=== PATIENT | male | born 1970 | race American Indian/Alaskan Native ===

== ENCOUNTER 2019-01-12 01:07 | Emergency (ER) | payer MEDICAID ==
[2019-01-12 01:54] LABS: Basophils % (Auto) 0.6 % (0.0-1.8); Eosinophils # (Auto) 0.2 K/mm3 (0.0-0.4); Eosinophils % (Auto) 3.2 % (0.0-4.3); Hematocrit 36.5 % (35.5-45.6); Hemoglobin 12.5 gm/dl (11.8-15.2); Lymphocytes % (Auto) 32.3 % (13.4-35.0); Mean Corpuscular HGB Conc 34 % (32-34); Mean Corpuscular Volume 87 fl (84-94); Monocytes # (Auto) 0.5 K/mm3 (0.0-0.8); Monocytes % (Auto) 8.6 % (0.0-7.3); Platelet Count 223 K/mm3 (140-440); Red Blood Count 4.21 M/mm3 (3.65-5.03); Red Cell Distribution Width 14.8 % (13.2-15.2)
[2019-01-12 02:13] LABS: BUN/Creatinine Ratio 17; Blood Urea Nitrogen 15 mg/dL (9-20); Calcium 9.3 mg/dL (8.4-10.2); Hemolysis Index 13
[2019-01-12] MEDS ORDERED: SUBLIMAZE IV ONE (03:32)
[2019-01-12] MEDS ORDERED: ZOFRAN IV ONE (03:32)
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
--- NOTE | 2019-01-12 03:55 | XRay Report ---
PROCEDURE: XR FOOT 2V RT TECHNIQUE: Right foot radiographs, AP and lateral views. HISTORY: Right foot pain and swelling COMPARISONS: None . FINDINGS: Fracture (s) and/or Dislocation(s): There is a comminuted fracture of the calcaneus . Alignment: Normal . Joint space(s): Normal . Soft tissues: Mild soft tissue swelling over the calcaneus . Bone mineralization: Normal . Foreign bodies: None . Calcaneal spurring: None . IMPRESSION: There is a comminuted fracture of the calcaneus. . This document is electronically signed by Renetta Villavicencio DO., January 12 2019 03:53:49 AM ET
--- NOTE | 2019-01-12 04:26 | XRay Report ---
PROCEDURE: XR ANKLE 2V LT TECHNIQUE: AP and lateral views left ankle HISTORY: pain after jumping from balcony COMPARISONS: None FINDINGS: Intact ankle mortise. The distal left tibia and fibula are intact. Lateral view including the left fo ot shows no displaced fracture or focal soft tissue abnormality. IMPRESSION: Intact left ankle. This document is electronically signed by Pankaj Grant MD., January 12 2019 04:25:03 AM ET
--- NOTE | 2019-01-12 04:27 | XRay Report ---
PROCEDURE: XR FOOT 2V LT TECHNIQUE: AP and lateral views of the left foot were submitted. HISTORY: pain after jumping from balcony COMPARISONS: None FINDINGS: There is no evidence of an acute displaced fracture or dislocation. The soft tissues are within jaky l limits. IMPRESSION: Within normal limits.. This document is electronically signed by Gerry Quintana MD., January 12 2019 04:25:19 AM ET
--- NOTE | 2019-01-12 04:30 | XRay Report ---
PROCEDURE: XR TIBIA FIBULA 2V RT TECHNIQUE: AP and lateral views of the right tibia-fibula were submitted. HISTORY: pain after jumping from balcony COMPARISONS: None FINDINGS: There is a vertically oriented mildly displaced fracture through the calcaneal tuberosity. There are no additional fractures. Ankle mortise is well-maintained. There is soft tissue swelling around the a nkle. The knee joint does not show any acute changes. There is nonspecific soft tissue swelling aroun d the midfoot. IMPRESSION: Acute vertically oriented mildly fracture through the calcaneal tuberosity. No additional fractures involving the tibia and fibula. Mild soft tissue swelling around the ankle and along the dorsal aspect of the midfoot.. This document is electronically signed by Gerry Quintana MD., January 12 2019 04:28:36 AM ET
--- NOTE | 2019-01-12 06:14 | Cat Scan Report ---
PROCEDURE: CT CERVICAL SPINE WO CON TECHNIQUE: Computerized tomography of the cervical spine was performed from the skull base to T1 wit hout contrast material. CT DOSE LENGTH PRODUCT: mGycm HISTORY: pain after jumping from balcony COMPARISONS: None . FINDINGS: C1-2: No significant abnormality . C2-3: No significant abnormality . C3-4: No significant abnormality . C4-5: No significant abnormality . C5-6: There is moderate narrowing of the disc space with endplate spurring. There is very mild left- sided neural foraminal encroachment by spurring. . C6-7: No significant abnormality . C7-T1: No significant abnormality . Fractures: None . Other: There are emphysematous changes in both lung apices. . IMPRESSION: Degenerative arthritic changes primarily at the C5-C6 level. No acute injury. Emphysematous changes in both lung apices. This document is electronically signed by Gerry Quintana MD., January 12 2019 06:12:42 AM ET
--- NOTE | 2019-01-12 06:36 | Cat Scan Report ---
PROCEDURE: CT ABDOMEN PELVIS WO CON TECHNIQUE: Routine axial imaging was obtained of the abdomen and pelvis without oral or IV contrast. HISTORY: RLQ pain after jumping from [employer] COMPARISONS: 06/03/2017 FINDINGS: The lung bases reveal very mild atelectatic changes. There are no infiltrates pneumothorax or effusio ns. The liver, spleen, gallbladder, biliary tree and pancreas appear normal. The adrenal glands appear no rmal. The kidneys reveal nonobstructing stones in the lower pole of the right kidney measuring 1.5 cm in diameter. There are punctate calcifications in left kidney. There is no evidence of hydronephrosi s. The bowel loops are normal in caliber and course. There is no evidence of free fluid or adenopathy . In the pelvis the prostate gland and bladder appear normal. There is a small left inguinal hernia c ontaining omental fat. There is no evidence of acute fracture. There is disc degeneration in the L4-5 and L5-S1 levels. The surrounding soft tissues otherwise are unremarkable. IMPRESSION: No acute process in the abdomen and pelvis. Nonobstructing stones lower pole of the right kidney. Nonobstructing punctate calcifications in the l eft kidney. Small left inguinal hernia containing omental fat. Disc degeneration in the lower lumbar spine.. This document is electronically signed by Gerry Quintana MD., January 12 2019 06:34:31 AM ET
--- NOTE | 2019-01-12 06:43 | Cat Scan Report ---
PROCEDURE: CT LUMBAR SPINE WO CON TECHNIQUE: Routine axial imaging was obtained of the lumbar spine without IV contrast with sagittal and coronal reconstructions. HISTORY: pain after jumping from balcony COMPARISONS: None FINDINGS: At the L5-S1 level there is severe narrowing of the disc with endplate changes. There is central bulg ing of the disc annulus. There is bilateral mild to moderate facet arthropathy changes. At the L4-5 level there is mild to moderate narrowing of the disc. There is central bulging of the di sc annulus with eccentricity toward the left neural foramen with left-sided neural foraminal impingem ent. The facet joints are well-maintained. At the L3-4 level the disc height is preserved. There is minimal bulging of the disc annulus. The can al size is normal. The facet joints are well-maintained. The L1-L2 and L2-3 disks are normal. There is no evidence of fracture. The surrounding soft tissue calcification of the abdominal aorta. T he SI joints appear intact. IMPRESSION: Disc degeneration at the L4-5 and L5-S1 levels as described with bulging annuli. Left-sided neural foraminal impingement the L4-5 level with eccentric bulging of the disc annulus. A disc herniation cannot entirely be excluded. MRI is recommended for further evaluation.. No evidence of acute fracture or soft tissue injury. This document is electronically signed by Gerry Quintana MD., January 12 2019 06:42:13 AM ET
--- NOTE | 2019-01-12 06:48 | Cat Scan Report ---
PROCEDURE: CT HEAD/BRAIN WO CON TECHNIQUE: Computerized tomography of the head was performed without contrast material. CT DOSE LENGTH PRODUCT: 805.4 mGycm HISTORY: pain after jumping from balcony COMPARISONS: None . FINDINGS: Skull and scalp: There is localized thinning within the right parietal bone which is of uncertain et iology. Whether this is congenital or acquired is uncertain. . Paranasal sinuses: Normal . Ventricles and subarachnoid spaces: Normal . Cerebrum: No evidence of hemorrhage, acute infarction or mass . Cerebellum and brainstem: No evidence of hemorrhage, acute infarction or mass . Vasculature: Normal . Other: None . ASPECTS: 10 IMPRESSION: No acute intracranial process. Localized thinning of the right parietal bone which is of uncertain etiology. Whether this is related to remote injury/surgery versus congenital is uncertain. This document is electronically signed by Gerry Quintana MD., January 12 2019 06:46:32 AM ET
[2019-01-12] MEDS ORDERED: DILAUDID IV ONE (07:25)
[2019-01-12 09:06] VITALS: BP 94/54
== END 2019-01-12 10:40 | disposition short-term general hospital (02) ==
LOC: ED 01:07
DX: S92.001A Unspecified fracture of right calcaneus, initial encounter for closed fracture (principal); M54.5 Low back pain; G89.11 Acute pain due to trauma; F20.0 Paranoid schizophrenia; E11.9 Type 2 diabetes mellitus without complications; J45.909 Unspecified asthma, uncomplicated; F17.200 Nicotine dependence, unspecified, uncomplicated; Z88.0 Allergy status to penicillin; Y04.8XXA Assault by other bodily force, initial encounter; Y93.39 Activity, other involving climbing, rappelling and jumping off; Y92.098 Other place in other non-institutional residence as the place of occurrence of the external cause; Y99.8 Other external cause status
CPT/HCPCS: 29515; 36415; 70450; 72125; 72131; 73590; 73600; 73620; 74176; 80048; 85025; 96374; 96375; 99285; G0480; J1170; J2405; J3010; 80320

== ENCOUNTER 2020-05-22 11:29 | Emergency (ER) | payer MEDICAID ==
[2020-05-22 11:48] VITALS: BP 88/55
[2020-05-22] MEDS ORDERED: HYDROcodone/ACETAMINOPHEN 10-325MG TAB PO ONE (13:24)
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
--- NOTE | 2020-05-22 14:16 | XRay Report ---
PELVIS ONE VIEW INDICATION / CLINICAL INFORMATION: pain s/p fall. COMPARISON: None available. FINDINGS: No significant skeletal abnormality Signer Name: Omer Villalobos MD FACR Signed: 05/22/2020 2:11 PM Workstation Name: [id number]
--- NOTE | 2020-05-22 14:27 | XRay Report ---
LUMBAR SPINE 3 VIEWS INDICATION / CLINICAL INFORMATION: pain s/p fall. COMPARISON: None available. FINDINGS: Mild narrowing of the L4-5 disc space. Degenerative change at L5-S1. No other significant skeletal ab normality. There is a high density oval-shaped structure with a linear metallic structure to the righ t of the L3 spinous process of unknown clinical significance. This appears to been present on prior C T abdomen and pelvis dated 01/12/2019 and appears to be within the kidney Signer Name: Omer Villalobos MD FACR Signed: 05/22/2020 2:23 PM Workstation Name: [id number]
--- NOTE | 2020-05-22 14:28 | XRay Report ---
THORACIC SPINE 3 VIEWS INDICATION / CLINICAL INFORMATION: pain s/p fall. COMPARISON: None available. FINDINGS: No significant skeletal abnormality. Alignment is normal. Signer Name: Omer Villalobos MD FACViviane Signed: 05/22/2020 2:24 PM Workstation Name: [id number]
== END 2020-05-22 16:06 | disposition home or self-care (01) ==
LOC: ED 11:29
DX: S39.012A Strain of muscle, fascia and tendon of lower back, initial encounter (principal); E11.9 Type 2 diabetes mellitus without complications; R56.9 Unspecified convulsions; F20.0 Paranoid schizophrenia; J45.909 Unspecified asthma, uncomplicated; F12.10 Cannabis abuse, uncomplicated; Z98.890 Other specified postprocedural states; Z79.1 Long term (current) use of non-steroidal anti-inflammatories (NSAID); Z79.899 Other long term (current) drug therapy; Z88.0 Allergy status to penicillin; W01.0XXA Fall on same level from slipping, tripping and stumbling without subsequent striking against object, initial encounter; Y93.89 Activity, other specified; Y92.89 Other specified places as the place of occurrence of the external cause; Y99.8 Other external cause status
CPT/HCPCS: 72072; 72100; 72170

== ENCOUNTER 2020-06-09 16:44 | Emergency (ER) | payer MEDICAID ==
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
[2020-06-09] MEDS ORDERED: HYDROcodone/ACETAMINOPHEN 5-325 MG TAB PO ONE (19:19)
[2020-06-09] MEDS ORDERED: ONDANSETRON 4 MG ODT TAB PO ONE ×2 (19:19→21:36)
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
[2020-06-09] MEDS ORDERED: SODIUM CHLORIDE 0.9% 1000 ML 1,000 ML IV ONE ×2 (21:09→21:10)
[2020-06-09] MEDS ORDERED: ACETAMINOPHEN W/CODEINE 300-30 MG TAB PO ONE (21:36)
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
[2020-06-09 23:31] VITALS: BP 94/60
== END 2020-06-09 23:29 | disposition home or self-care (01) ==
LOC: ED 16:44
DX: S09.90XA Unspecified injury of head, initial encounter (principal); M79.601 Pain in right arm; E11.9 Type 2 diabetes mellitus without complications; R56.9 Unspecified convulsions; J45.909 Unspecified asthma, uncomplicated; F20.0 Paranoid schizophrenia; F17.200 Nicotine dependence, unspecified, uncomplicated; Z98.890 Other specified postprocedural states; Z79.1 Long term (current) use of non-steroidal anti-inflammatories (NSAID); Z79.899 Other long term (current) drug therapy; Z88.0 Allergy status to penicillin; Y04.2XXA Assault by strike against or bumped into by another person, initial encounter; Y93.89 Activity, other specified; Y92.89 Other specified places as the place of occurrence of the external cause; Y99.8 Other external cause status
CPT/HCPCS: 70450; 72072; J7030; Q0162

== ENCOUNTER 2020-06-30 11:05 | Emergency (ER) | payer MEDICAID ==
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
[2020-06-30 13:24] VITALS: BP 82/45
== END 2020-06-30 14:00 | disposition home or self-care (01) ==
LOC: ED 11:05
DX: T14.8XXA Other injury of unspecified body region, initial encounter (principal); E11.9 Type 2 diabetes mellitus without complications; G40.909 Epilepsy, unspecified, not intractable, without status epilepticus; F20.0 Paranoid schizophrenia; J45.909 Unspecified asthma, uncomplicated; F12.10 Cannabis abuse, uncomplicated; Z79.899 Other long term (current) drug therapy; Z88.0 Allergy status to penicillin; W57.XXXA Bitten or stung by nonvenomous insect and other nonvenomous arthropods, initial encounter; Y93.89 Activity, other specified; Y92.89 Other specified places as the place of occurrence of the external cause; Y99.8 Other external cause status
CPT/HCPCS: 99281